=== PATIENT | female | born 1990 | race American Indian/Alaskan Native ===

== ENCOUNTER 2018-09-11 09:45 | Outpatient (CLI) | payer MEDICAID ==
[2018-09-11] MEDS ORDERED: LACTATED RINGERS 500 ML IV ONE (09:59)
--- NOTE | 2018-09-11 12:58 | Ultrasound Report ---
[facility] [address] [place] [address] Ultrasound Report Signed Patient: PERLA ESQUIVEL MR#: [id number] : 1990 Acct:[id number] Age/Sex: 27 / F ADM Date: 09/11/18 Loc: TRG TR1-[address]: TRENTON HER MD Ordering Physician: TRENTON HER MD Date of Service: 09/11/18 Procedure(s): US OB limited Accession Number(s): [id number] cc: TRENTON HER MD Limited OB ultrasound (placenta scan) INDICATION: Evaluate placental location FINDINGS: The placenta is located anteriorly and is grade 1. heart rate is 160 bpm. IMPRESSION: The placenta is located anteriorly. Signer Name: Scott Childress MD Signed: 09/11/2018 12:54 PM Workstation Name: [id number] Transcribed By: REF Dictated By: SHADI MAHMOOD MD Electronically Authenticated By: SHADI MAHMOOD MD Signed Date/Time: 09/11/18 1154 DD/ 1152 TD/TT:
[2018-09-11 13:00] LABS: Bilirubin,Urine NEG (Negative); Blood,Urine NEG (Negative); Color,Urine Yellow (Yellow); Protein,Urine <15 mg/dL mg/dL (Negative); WBC,Urine < 1.0 /HPF (0.0-6.0)
[2018-09-11] MEDS ORDERED: LACTATED RINGERS 1,000 ML ONE (16:35)
[2018-09-11] MEDS ORDERED: PROCARDIA*For Tocolysis only PO SCH (16:44)
[2018-09-11 17:06] VITALS: BP 135/82
[2018-09-11] MEDS ORDERED: LACTATED RINGERS 1,000 ML IV ONE (17:11)
[2018-09-11] MEDS ORDERED: CELESTONE SOLUSPAN IM ONE (18:56)
== END 2018-09-11 20:37 | disposition home or self-care (01) ==
LOC: TRG 09:45
PROVIDERS: ATTEND Obstetrics & Gynecology
DX: O46.93 Antepartum hemorrhage, unspecified, third trimester (principal); O47.03 False labor before 37 completed weeks of gestation, third trimester; O09.213 Supervision of pregnancy with history of pre-term labor, third trimester; O99.323 Drug use complicating pregnancy, third trimester; F12.90 Cannabis use, unspecified, uncomplicated; Z3A.28 28 weeks gestation of pregnancy
CPT/HCPCS: 59025; 76815; 81001; 96360; 96372; J0702; J7120; 96361

== ENCOUNTER 2018-11-04 22:28 | Inpatient (IN) | payer MEDICAID ==
[2018-11-04] MEDS ORDERED: LACTATED RINGERS 500 ML IV ONE (23:05)
[2018-11-04] MEDS ORDERED: BRETHINE SUB-Q SCH (23:45)
[2018-11-05 01:34] LABS: Bilirubin,Urine NEG (Negative); Blood,Urine NEG (Negative); Color,Urine Straw (Yellow); Protein,Urine <15 mg/dL mg/dL (Negative); Urobilinogen,Urine < 2.0 mg/dL (<2.0)
--- NOTE | 2018-11-05 03:41 | Ultrasound Report ---
OB ultrasound. 11/05/2018. HISTORY: Evaluate MELITON. labor. FINDINGS: A single viable intrauterine in the cephalic position has heart tones are 1 61 bpm. Amniotic fluid index is diminished at 5. The largest pocket is 2.7 cm. Biophysical profile is 6. 2 points were received for breathing movement, movement and fet al posture/stone. Signer Name: Antonio Gabriel MD Signed: 11/05/2018 3:37 AM Workstation Name: [id number]
[2018-11-05] MEDS ORDERED: TYLENOL PO PRN (04:28)
[2018-11-05] MEDS ORDERED: PROCTOSOL-HC PR PRN (04:53)
--- NOTE | 2018-11-05 05:08 | History and Physical Report ---
History of Present Illness Date of examination: 11/05/18 Date of admission: 11/05/18 03:49 Chief complaint: Oligohydramnios History of present illness: 28 year old female presents to rule out labor. Patient reports active movement. She denies leaking of fluid or vaginal bleeding. Patient had US here in triage that showed MELITON of 5.0 (and BPP 6/8). Patient received care at [facility]. Was able to look up records from [facility]. Patient states she received steroids for FLM during a previous visit. Unable to locate this on the computer. LMP 02/27/18. EDC 12/04/18. significant for the following: elevated 1 hour sugar test (normal 3 hr. OGTT), history of with a previous , labile BPs (pt. taking Labetalol 100 mg po BID), anemia (treated with iron). labs are as follows: B+, antibody screen negative, rubella immune, hepatitis B surface antigen negatve, HIV negative, RPR nonreactive, gonorrhea negative, chlamydia negative, quad screen negative, 1 hr. sugar test 153 (3 hr. OGTT negative). Past History Past Medical History: no pertinent history Past Surgical History: no surgical history [facility] History: denies: chlamydia, gonorrhea, hepatitis B, hepatitis C, herpes, HIV, syphilis, trichomonas Family/Genetic History: none Social history: single, smoking, full code. denies: alcohol abuse, prescription drug abuse, IV drug use - Obstetrical History Expected Date of Delivery: 12/04/18 Actual Gestation: 35 Week(s) 6 Day(s) : 6 Para: 3 Hx # Term Pregnancies: 3 Number of Pregnancies: 1 Spontaneous Abortions: 0 Induced : 1 Number of Living Children: 3 Medications and Allergies Allergies Allergy/AdvReac Type Severity Reaction Status Date / Time latex Allergy Rash Verified 09/11/18 09:58 Home Medications Medication Instructions Recorded Confirmed Last Taken Type Labetalol 100mg TAB 100 mg PO BID 11/02/18 11/02/18 11/02/18 History 100mg Active Meds: Active Medications Acetaminophen (Tylenol) 650 mg PO Q4H PRN PRN Reason: Pain MILD(1-3)/Fever >100.5/NAGEL Hydrocortisone Acetate (Proctosol-Hc) 1 applic CA Q8H PRN PRN Reason: Hemorrhoids Lactated Ringer's (Lactated Ringers) 1,000 mls @ 125 mls/hr IV DIRECT [place] Multivitamins/Iron/Calcium ( Vitamin) 1 each PO QDAY [facility] Terbutaline Sulfate (Brethine) 0.25 mg SUB-Q Q20MIN [place] Stop: 11/06/18 23:46 Last Admin: 11/05/18 00:36 Dose: 0.25 mg Documented by: Review of Systems All systems: negative - Vital Signs Vital signs: Vital Signs Pulse BP 93 H 122/80 11/04/18 22:48 11/04/18 22:48 Temp Pulse Resp BP Pulse Ox 98.1 F 79 18 128/83 98 11/04/18 22:57 11/05/18 00:44 11/04/18 22:57 11/05/18 00:37 11/05/18 00:44 - Physical Exam Abdomen: Positive: normal appearance, soft, normal bowel sounds. Negative: distention, tenderness, guarding, rigidity Genitourinary (Female): Positive: normal external genitalia, normal perenium. Negative: perineal/vulvar lesions Vagina: Positive: normal moisture Uterus: Positive: enlarged (s=d) Anus/Rectum: Positive: normal perianal skin Extremities: Positive: normal. Negative: tenderness, edema - Obstetrical FHR: category 1 Uterine Contraction Monitor Mode: External Cervical Dilatation: 2.5 Cervical Effacement Percentage: 50 station: -3 Uterine Contraction Pattern: Irregular Uterine Contraction Intensity: Mild Results Result Diagrams: 11/04/18 23:15 All other labs normal. Assessment and Plan A: at 35 6/7 weeks gestation. Oligohydramnios. P: Admit for 23 hour observation. IV hydration. Continuous EFM. Recheck MELITON by US later today. Manpreet IM.
[2018-11-05 06:02] LABS: Basophils # (Auto) 0.1 K/mm3 (0.0-0.1); Basophils % (Auto) 0.7 % (0.0-1.8); Eosinophils # (Auto) 0.1 K/mm3 (0.0-0.4); Hematocrit 28.1 % (30.3-42.9); Hemoglobin 8.7 gm/dl (10.1-14.3); Lymphocytes # (Auto) 2.3 K/mm3 (1.2-5.4); Lymphocytes % (Auto) 23.7 % (13.4-35.0); Mean Corpuscular HGB Conc 31 % (30-34); Monocytes # (Auto) 0.6 K/mm3 (0.0-0.8); Monocytes % (Auto) 6.6 % (0.0-7.3); Platelet Count 177 K/mm3 (140-440); Red Blood Count 4.27 M/mm3 (3.65-5.03); Red Cell Distribution Width 19.2 % (13.2-15.2)
[2018-11-05 06:03] LABS: Mean Corpuscular Volume 66 fl (79-97)
[2018-11-05] MEDS: LACTATED RINGERS 1,000 ML IV SCH ×3 (06:09→23:35)
[2018-11-05] MEDS ORDERED: TUCKS PAD TP ONE (06:31)
[2018-11-05] MEDS ORDERED: TUCKS PAD TP PRN (07:14)
[2018-11-05] MEDS ORDERED: SUBLIMAZE IV ONE (07:35)
[2018-11-05] MEDS ORDERED: SUBLIMAZE ONE (07:55)
[2018-11-05] MEDS ORDERED: CELESTONE SOLUSPAN IM SCH (10:00)
[2018-11-05] MEDS: FEOSOL PO SCH ×2 (11:50→22:11)
[2018-11-05] MEDS: PRENATAL VITAMIN PO SCH (11:50)
[2018-11-05] MEDS: NORMODYNE PO SCH ×2 (15:42→22:12)
--- NOTE | 2018-11-05 17:03 | Event Note ---
Date: 11/05/18 Patient reports intermittent mild contractions at this time. No regular contractions at this time. Patient denies LOF or VB. Pt. reports active movement. BPs elevated; patient states she was taking Labetalol 100 mg po BID at home; Labetalol 100 mg po BID ordered for pt. Pre-eclamptic labs ordered. Pt. denies headache, visual disturbance, swelling, epigastric pain, or N/V. BPP 8/8. MELITON 11.[address] Jaramillo re: this patient and he states to keep patient in hospital again tonight. Discussed this plan with patient and her S.O. who was at bedside. Full admit order put in.
--- NOTE | 2018-11-05 17:14 | Ultrasound Report ---
CLINICAL DATA: well being TECHNICAL DATA: Document breath, motion, gestational age, tone, and fluid. FINDINGS: respiration, tone, and motion are well visualized and normal. Amniotic fluid volume is normal. Biophysical profile score is 8/8. On the prior ultrasound of 11/05/2018 at 0312 hours, the patient received a score of 6 out of 8. heart rate is 146 bpm. Amniotic fluid index was calculated to be 11.5 cm. IMPRESSION: The biophysical profile score is 8/8. Signer Name: Jerica Silverman MD Signed: 11/05/2018 5:10 PM Workstation Name: [id number]
--- NOTE | 2018-11-05 17:16 | Ultrasound Report ---
Examination: Ultrasound Obstetrical Limited, 11/05/2018 at 1601 hours INDICATION: Evaluate amniotic fluid index. COMPARISON: Prior OB ultrasound from earlier today FINDINGS: There is a single living intrauterine with the head in the cephalic position. Amniotic flui d index measures 11.5 cm, which is within normal limits. The heart rate is 146 beats per minute . IMPRESSION: Single viable IUP in a cephalic presentation. Normal amniotic fluid volume. Signer Name: Jerica Silverman MD Signed: 11/05/2018 5:12 PM Workstation Name: [id number]
[2018-11-05 18:10] LABS: Alanine Aminotransferase 7 units/L (7-56); Albumin 3.2 g/dL (3.9-5); BUN/Creatinine Ratio 8; Blood Urea Nitrogen 3 mg/dL (7-17); Hemolysis Index 1; Uric Acid 3.8 mg/dL (3.5-7.6)
[2018-11-05] MEDS ORDERED: ZOFRAN ONE (22:06)
[2018-11-06] MEDS ORDERED: SUBLIMAZE IV ONE (00:51)
[2018-11-06] MEDS: LACTATED RINGERS 1,000 ML IV SCH ×2 (02:50→11:31)
[2018-11-06] MEDS: PRENATAL VITAMIN PO SCH (10:06)
[2018-11-06] MEDS: NORMODYNE PO SCH ×2 (10:06→21:14)
[2018-11-06] MEDS: FEOSOL PO SCH ×2 (10:07→21:14)
--- NOTE | 2018-11-06 10:11 | Progress Note ---
Assessment and Plan - Patient Problems (1) 36 weeks gestation of Current Visit: Yes Status: Acute (2) labor in third trimester Current Visit: Yes Status: Acute Plan to address problem: Continue current management Will consult Dr. Harris about plan of care (3) Gestational hypertension Current Visit: Yes Status: Acute Qualifiers: Trimester: third trimester Qualified Code(s): O13.3 - Gestational [-induced] hypertension without significant proteinuria, third trimester Plan to address problem: PIH labs WNL Continue Labetalol 100mg PO BID (4) Anemia affecting in third trimester Current Visit: Yes Status: Acute Plan to address problem: Asymptomatic Continue iron therapy Subjective - Subjective Date of service: 11/06/18 Principal diagnosis: IUP @ 36 weeks, Labor Interval history: see H&P and Event Note Patient reports: movement normal, contractions, other (denies headache, visual disturbances or RUQ pain), no loss of fluid, no vaginal bleeding Objective - Vital Signs Vital Signs: Vital Signs - 12hr 11/05/18 11/05/18 11/06/18 22:12 22:13 02:50 Temperature Pulse Rate 118 H 118 H Respiratory 16 Rate Blood Pressure 134/94 136/94 Blood Pressure [Right] 11/06/18 11/06/18 11/06/18 08:17 10:00 10:03 Temperature 98.7 F Pulse Rate 98 H 111 H 100 H Respiratory 16 Rate Blood Pressure 127/81 143/92 140/90 Blood Pressure 127/81 [Right] 11/06/18 10:06 Temperature Pulse Rate 100 H Respiratory Rate Blood Pressure 140/90 Blood Pressure [Right] - Exam FHR: auscultation normal, category 1 FHR comments: baseline 140, moderate variability, 15x15 accels, no decels Uterine Contraction Monitor Mode: External Cervical Dilatation: 2.5 Cervical Effacement Percentage: 50 station: -3 Uterine Contraction Frequency (min): 2-4 Uterine Contraction Pattern: Regular Extremities: normal - Labs Labs: Abnormal Labs 11/04/18 11/05/18 23:15 17:20 Hgb 8.7 L Hct 28.1 L MCV 66 L MCH 20 L RDW 19.2 H Carbon Dioxide 21 L BUN 3 L Creatinine 0.4 L Glucose 143 H Alkaline Phosphatase 133 H Albumin 3.2 L Laboratory Results - last 24 hr 11/05/18 17:20 Sodium 140 Potassium 3.6 Chloride 103.1 Carbon Dioxide 21 L Anion Gap 20 BUN 3 L Creatinine 0.4 L Estimated GFR > 60 BUN/Creatinine Ratio 8 Glucose 143 H Uric Acid 3.8 Calcium 9.0 Total Bilirubin 0.70 AST 15 ALT 7 Alkaline Phosphatase 133 H Lactate Dehydrogenase 167 Total Protein 7.0 Albumin 3.2 L Albumin/Globulin Ratio 0.8
--- NOTE | 2018-11-06 14:11 | Event Note ---
Date: 11/06/18 S: Patient resting in bed and on her cellphone. C/O regular painful contractions. Denies vaginal bleeding or loss of fluid. Significant other at b edside. O: FHR baseline 145, moderate variability, 15x15 accels, occasional mild variable decels Ctxs: irregular. Abdomen soft on palpation SVE 2.5/50/-3/I BPs stable A: IUP @ 36 weeks Cat II FHR Labor - no cervical change since 11/05/18 Gestational HTN P: Continue current management Repeat BPP and MELITON; if normal and 1 hour of reactive NST will d/c pt home to f/u at the office in 48 hours Patient agreed with plan of care
--- NOTE | 2018-11-06 16:24 | Ultrasound Report ---
LIMITED OB ULTRASOUND INDICATION: Patient is 36 weeks . Nonreassuring heart rate FINDINGS: heart rate is 168 bpm. Amniotic fluid index is 7.8 cm which is at the lower end of the normal r pedro. The fetus is currently cephalic presentation. IMPRESSION: Amniotic fluid index is 7.8 cm. heart rate is 168 bpm. BIOPHYSICAL PROFILE INDICATION: 36 weeks , nonreassuring heart rate FINDINGS: Biophysical profile score is 8 out of 8. Scores 2 for breathing movement, 2 for movement, 2 for posture and tone and 2 for q ualitative amniotic volume. IMPRESSION: Biophysical profile score is 8 out of 8. Signer Name: Scott Childress MD Signed: 11/06/2018 4:20 PM Workstation Name: [id number]
[2018-11-06] MEDS ORDERED: ZOFRAN ONE (21:37)
[2018-11-07] MEDS ORDERED: STADOL IV ONE (00:39)
[2018-11-07] MEDS ORDERED: ZOFRAN IV ONE (03:00)
[2018-11-07] MEDS ORDERED: STADOL IV PRN (05:29)
[2018-11-07] MEDS: LACTATED RINGERS 1,000 ML IV SCH (05:46)
[2018-11-07] MEDS: NORMODYNE PO SCH (10:53)
[2018-11-07] MEDS: PRENATAL VITAMIN PO SCH (10:53)
[2018-11-07] MEDS: FEOSOL PO SCH (10:53)
[2018-11-07 11:43] VITALS: BP 115/69
--- NOTE | 2018-11-07 12:07 | Event Note ---
Date: 11/07/18 MELITON repeated with results of 9.1. Informed pt of normal MELITON results and that IOL is not indicated. Instructed that she will be d/c home and to keep next scheduled appt with office. Reviewed pre-tern labor precautions and when to notify provider, verbalized understanding.
--- NOTE | 2018-11-07 12:12 | Discharge Summary ---
Providers - Providers Date of Admission: 11/05/18 03:49 Date of discharge: 11/07/18 Attending physician: IVONE GARCIA MD Primary care physician: IVONE GARCIA MD Hospitalization Reason for admission: other (R/O labor and oligohydramnios) Discharge diagnosis: other (36 week gestation; anemia) Pertinent studies: MELITON - 9.1, BPP 10/19 Hospital course: See admission H & P, BPP and MELITON results Condition at discharge: Good Disposition: DC-01 TO HOME OR SELFCARE - Discharge Diagnoses (1) 36 weeks gestation of Status: Acute (2) Anemia affecting in third trimester Status: Acute Plan - Provider Discharge Summary Activity: routine Diet: routine Additional instructions: [] Smoking cessation referral if applicable(refer to patient education folder for contact #) [] Refer to [facility] Booklet - Follow up plan Follow up: IVONE GARCIA MD [Primary Care Provider] - 7 Days
[2018-11-07] MEDS ORDERED: BRETHINE SUB-Q ONE (13:02)
--- NOTE | 2018-11-07 13:25 | Ultrasound Report ---
Examination: Ultrasound Obstetrical Limited, 11/07/2018 INDICATION: Evaluate well being. COMPARISON: 11/06/2018 FINDINGS: There is a single living intrauterine with the head in the cephalic position. Amniotic flui d index measures 9.1 cm, which is within normal limits. The heart rate is 148 beats per minute. IMPRESSION: Viable IUP in a cephalic presentation. Signer Name: Jerica Silverman MD Signed: 11/07/2018 1:21 PM Workstation Name: [id number]
== END 2018-11-07 12:50 | disposition home or self-care (01) | DRG 781 ==
LOC: TRG 22:28 → OBSVTOIN 11-05 03:49 → LD 11-05 03:49
PROVIDERS: ADMIT Obstetrics & Gynecology; ATTEND Obstetrics & Gynecology
DX: O41.03X0 Oligohydramnios, third trimester, not applicable or unspecified (principal); O99.013 Anemia complicating pregnancy, third trimester; O13.3 Gestational [pregnancy-induced] hypertension without significant proteinuria, third trimester; D64.9 Anemia, unspecified; Z3A.35 35 weeks gestation of pregnancy; Z91.040 Latex allergy status; Z79.899 Other long term (current) drug therapy
CPT/HCPCS: 36415; 76815; 76819; 80053; 81001; 83615; 84550; 85025; G0378; J0595; J0702; J2405; J3010; J3105; J7120

== ENCOUNTER 2018-11-09 12:09 | Inpatient (IN) | payer MEDICAID ==
[2018-11-09 14:33] LABS: Hematocrit 27.4 % (30.3-42.9); Hemoglobin 8.4 gm/dl (10.1-14.3); Mean Corpuscular HGB Conc 31 % (30-34); Red Blood Count 4.18 M/mm3 (3.65-5.03); Red Cell Distribution Width 19.5 % (13.2-15.2)
[2018-11-09] MEDS ORDERED: BRETHINE IVP PRN (15:08)
[2018-11-09] MEDS ORDERED: AMPICILLIN/NS 2 GM/100 ML 2 GM/100 ML BAG IV ONE (15:08)
[2018-11-09] MEDS ORDERED: ZOFRAN IV PRN (15:08)
[2018-11-09] MEDS ORDERED: BRETHINE SUB-Q PRN (15:08)
[2018-11-09] MEDS ORDERED: MINERAL OIL PO PRN (15:08)
[2018-11-09] MEDS ORDERED: SUBLIMAZE IV PRN (15:08)
[2018-11-09] MEDS ORDERED: XYLOCAINE 2% INFILTRATI ONE (15:08)
[2018-11-09 15:18] LABS: Mean Corpuscular Volume 65 fl (79-97)
[2018-11-09 15:19] LABS: Platelet Count 146 K/mm3 (140-440)
[2018-11-09] MEDS: LACTATED RINGERS 1,000 ML IV SCH (15:52)
[2018-11-09] MEDS ORDERED: PITOCin/NS 20 UNIT/1000ML DRIP 20 UNITS/1,000 ML BAG IV SCH (16:00)
[2018-11-09] MEDS ORDERED: PITOCin/NS 30 UNIT/500ML 30 UNITS/500 ML BAG IV SCH (16:00)
--- NOTE | 2018-11-09 16:03 | History and Physical Report ---
History of Present Illness Date of examination: 11/09/18 Date of admission: 11/09/18 12:09 Chief complaint: Sent from [facility] for direct admission History of present illness: 28 yo Fe NINA 12/04/2018 (LMP), 36weeks 3days, presents for direct s/p [facility] this morning. Oligohydramnios with MELITON 1.41. BPP 08/21. [facility] report available and reviewed. Pt initiated early care with [facility] at 6w3d. Pt co-managed with [facility] d/t CHTN, Hx PTL, and decreased MELITON. records available and reviewed. course complicated by the following: Anemia: Ferrous sulfate 325mg PO BID Hx PTL/PTB: 36 wks in 2013 CHTN: Liable B/P during . Labetalol 100mg BID labor current : Procardia 10mg PO QID; s/p BMZ x2 (09/11-09/12) labs: B positive, Rubella Immune, VDRL non-reactive, HBsAg Negative, HIV Negative, GC negative, CHL Negative, Trichomoniasis Negative, GBS unknown Past History Past Medical History: no pertinent history Past Surgical History: no surgical history [employer] History: denies: abnormal PAP smear, chlamydia, gonorrhea, hepatitis B, hepatitis C, herpes, HIV, syphilis, trichomonas Family/Genetic History: none (Denies) Social history: no significant social history, single, lives with family, full code. denies: smoking, alcohol abuse, prescription drug abuse, IV drug use - Obstetrical History Expected Date of Delivery: 12/04/18 Actual Gestation: 36 Week(s) 3 Day(s) : 5 Para: 3 Hx # Term Pregnancies: 2 Number of Pregnancies: 1 Spontaneous Abortions: 0 Induced : 1 Number of Living Children: 3 #1 Gender: Female year: Method of Delivery: Vaginal Gestational age at delivery: 38 Complications: none #2 Infant Gender: Female year: Method of Delivery: Vaginal Gestational age at delivery: 37 Complications: none #3 Infant Gender: Female year: Method of Delivery: Vaginal Gestational age at delivery: 36 ( Labor and delivery) Complications: none Medications and Allergies Allergies Allergy/AdvReac Type Severity Reaction Status Date / Time latex Allergy Rash Verified 09/11/18 09:58 Home Medications Medication Instructions Recorded Confirmed Last Taken Type Labetalol 100mg TAB 100 mg PO BID 11/02/18 11/09/18 11/09/18 07:00 History Vit-Fe Fumar-FA [ 1 tab PO DAILY 11/06/18 11/09/18 11/09/18 07:00 History Vitamin] Active Meds: Active Medications Ephedrine Sulfate (Ephedrine Sulfate) 10 mg IV Q2M PRN PRN Reason: Hypotension Fentanyl (Sublimaze) 100 mcg IV Q2H PRN PRN Reason: Labor Pain Oxytocin/Sodium Chloride (Pitocin/Ns 20 Unit/1000ml Drip) 20 units in 1,000 mls @ 125 mls/hr IV DIRECT [place] Oxytocin/Sodium Chloride (Pitocin/Ns 30 Unit/500ml) 30 units in 500 mls @ 1 mls/hr IV TITR [place]; Protocol Oxytocin/Sodium Chloride (Pitocin/Ns 30 Unit/500ml) 30 units in 500 mls @ 2 mls/hr IV TITR [place]; Protocol Lactated Ringer's (Lactated Ringers) 1,000 mls @ 125 mls/hr IV DIRECT [place] Ampicillin Sodium (Ampicillin/Ns 2 Gm/100 Ml) 2 gm in 100 mls @ 100 mls/hr IV ONCE ONE; Protocol Stop: 11/09/18 16:07 Mineral Oil (Mineral Oil) 30 ml PO QHS PRN PRN Reason: Constipation Ondansetron HCl (Zofran) 4 mg IV Q8H PRN PRN Reason: Nausea And Vomiting Terbutaline Sulfate (Brethine) 0.25 mg SUB-Q ONCE PRN PRN Reason: Hyperstimulation/Hypertonicity Terbutaline Sulfate (Brethine) 0.25 mg IVP ONCE PRN PRN Reason: Hyperstimulation/Hypertonicity Review of Systems Eyes: normal appearance Cardiovascular: no chest pain, no shortness of breath Respiratory: no shortness of breath Breasts: normal Gastrointestinal: no abdominal pain, no nausea, no vomiting, no diarrhea, no constipation Genitourinary: leakage of fluid (Reports she started leaking on Tuesday11/04/2018), no vaginal bleeding, no pelvic pain, no genital sores, no contractions - Vital Signs Vital signs: Vital Signs Pulse BP 101 H 138/79 11/09/18 12:44 11/09/18 12:44 Temp Pulse Resp BP Pulse Ox 94 H 134/82 11/09/18 14:36 11/09/18 14:36 - Physical Exam Breasts: Positive: normal Cardiovascular: Regular rate, Normal S1, Normal S2, No murmurs Lungs: Positive: Clear to auscultation, Normal air movement Abdomen: Positive: normal appearance, soft, normal bowel sounds. Negative: distention, tenderness Genitourinary (Female): Positive: normal external genitalia, normal perenium Uterus: Positive: enlarged (Gravid; S=D) Anus/Rectum: Positive: normal perianal skin Extremities: Positive: normal Deep Tendon Reflex Grade: Normal +2 - Obstetrical FHR: category 1 Uterine Contraction Monitor Mode: External Cervical Dilatation: 3 (Per Admitting RN; Edita) Cervical Effacement Percentage: 50 station: -2 Uterine Contraction Pattern: Irregular Uterine Tone Measurement Phase: Resting Uterine Contraction Intensity: Mild Results Result Diagrams: 11/09/18 13:40 Abnormal lab results 11/09/18 Range/Units 13:40 WBC 11.4 H (4.5-11.0) K/mm3 Hgb 8.4 L (10.1-14.3) gm/dl Hct 27.4 L (30.3-42.9) % MCV 65 L (79-97) fl MCH 20 L (28-32) pg RDW 19.5 H (13.2-15.2) % All other labs normal. Assessment and Plan A: IUP at 36w3d Oligohydramnios; MELITON 1.41 cm CHTN; Labetalol 100mg BID Category 1 tracing GBS unknown Iron deficient Anemia; Admission H/H 8.4/27.4 Probable prolonged LOF; pt reports LOF since 11/04, WBC 11.4 P: Admit to L&D; Routine labor orders Pitocin IOL GBS prophylaxis Continue labetalol 100mg BID
[2018-11-09] MEDS: PITOCin/NS 30 UNIT/500ML 30 UNITS/500 ML BAG IV SCH ×2 (17:54→18:27)
[2018-11-09] MEDS ORDERED: AMPICILLIN/NS 1 GM/50 ML 1 GM/50 ML BAG IV SCH ×2 (20:00→22:00)
[2018-11-09] MEDS ORDERED: NORMODYNE PO SCH (20:00)
[2018-11-10] MEDS: LACTATED RINGERS 1,000 ML IV SCH (01:37)
[2018-11-10] MEDS ORDERED: NARCAN 2 MG/2 ML IV PRN (02:44)
--- NOTE | 2018-11-10 02:44 | Anesthesia Consultation ---
Anesthesia Consult and Med Hx Date of service: 11/10/18 - Airway Anesthetic Teeth Evaluation: Good ROM Head & Neck: Adequate Mental/Hyoid Distance: Adequate Mallampati Class: Class II Intubation Access Assessment: Probably Good - Pulmonary Exam CTA: Yes - Cardiac Exam Cardiac Exam: RRR - Pre-Operative Health Status ASA Pre-Surgery Classification: ASA2 Proposed Anesthetic Plan: Epidural - Pulmonary Hx Smoking: No Hx Asthma: No Hx Respiratory Symptoms: No SOB: No COPD: No Home Oxygen Therapy: No Hx Pneumonia: No Hx Sleep Apnea: No - Cardiovascular System Hx Hypertension: No Hx Coronary Artery Disease: No Hx Heart Attack/AMI: No Hx Angina: No Hx Percutaneous Transluminal Coronary Angioplasty (PTCA): No Hx Cardia Arrhythmia: No Hx Pacemaker: No Hx Internal Defibrillator: No Hx Valvular Heart Disease: No Hx Heart Murmur: No Hx Peripheral Vascular Disease: No - Central Nervous System Hx Neuromuscular Disorder: No Hx Seizures: No CVA: No Hx Back Pain: No Hx Psychiatric Problems: No - Gastrointestinal Hx Ulcer: No Hx Gastroesophageal Reflux Disease: No - Endocrine Hx Renal Disease: No Hx End Stage Renal Disease: No Hx Cirrhosis: No Hx Liver Disease: No Hx Insulin Dependent Diabetes: No Hx Non-Insulin Dependent Diabetes: No Hx Thyroid Disease: No Hx Hypothyroidism: No Hx Hyperthyroidism: No - Hematic Hx Anemia: No Hx Sickle Cell Disease: No - Other Systems Hx Alcohol Use: No Hx Substance Use: No Hx Cancer: No Hx Obesity: No
[2018-11-10] MEDS ORDERED: fentaNYL-BUPIV 2 MCG/ML-0.125% 200 MCG/100 ML BAG EPIDURAL SCH (03:00)
[2018-11-10] MEDS: AMPICILLIN/NS 1 GM/50 ML 1 GM/50 ML BAG IV SCH ×2 (04:00)
[2018-11-10] MEDS ORDERED: MARCAINE 0.25% INFILTRATI ONE (06:09)
--- NOTE | 2018-11-10 06:09 | Progress Note ---
Assessment and Plan A: IUP at 36w4d IOL d/t Oligohydramnios; MELITON 1.41 cm CHTN; Labetalol 100mg BID Category 1 tracing GBS unknown; Ampicillin x4 Pitocin 22mu Pain uncontrolled with epidural P: Continue routine labor orders Pitocin turned off after insertion of IUPC as contractions q 1-2 min, lasting 60-120sec CAll to anesthesia to redose epidural Continue GBS prophylaxis Continue labetalol 100mg BID Anticipate Subjective - Subjective Date of service: 11/10/18 Interval history: 28 yo Fe INNA 12/04/2018 (LMP), 36weeks 3days, presents for direct s/p APA this morning. Oligohydramnios with MELITON 1.41. BPP 08/21. APA report available and reviewed. Pt initiated early care with [facility] at 6w3d. Pt co-managed with APA d/t CHTN, Hx PTL, and decreased MELITON. records available and reviewed. course complicated by the following: Anemia: Ferrous sulfate 325mg PO BID Hx PTL/PTB: 36 wks in 2013 CHTN: Liable B/P during . Labetalol 100mg BID labor current : Procardia 10mg PO QID; s/p BMZ x2 (09/11-09/12) labs: B positive, Rubella Immune, VDRL non-reactive, HBsAg Negative, HIV Negative, GC negative, CHL Negative, Trichomoniasis Negative, GBS unknown Patient reports: contractions Objective - Vital Signs Vital Signs: Vital Signs - 12hr 11/09/18 11/09/18 11/09/18 18:03 19:27 19:59 Temperature 98.3 F 980.6 F H Pulse Rate 102 H Respiratory Rate Blood Pressure 121/88 O2 Sat by Pulse Oximetry 11/09/18 11/09/18 11/09/18 20:00 20:41 20:59 Temperature Pulse Rate 95 H 95 H 96 H Respiratory Rate Blood Pressure 144/91 144/91 133/89 O2 Sat by Pulse Oximetry 11/09/18 11/09/18 11/09/18 21:28 22:00 22:29 Temperature Pulse Rate 101 H 90 91 H Respiratory Rate Blood Pressure 140/101 132/82 O2 Sat by Pulse 99 Oximetry 11/09/18 11/09/18 11/09/18 22:30 22:34 22:39 Temperature Pulse Rate 83 101 H 98 H Respiratory Rate Blood Pressure 133/79 O2 Sat by Pulse 97 97 Oximetry 11/09/18 11/09/18 11/09/18 22:44 22:49 22:54 Temperature Pulse Rate 103 H 94 H 97 H Respiratory Rate Blood Pressure O2 Sat by Pulse 96 96 97 Oximetry 11/09/18 11/09/18 11/09/18 22:59 23:04 23:09 Temperature Pulse Rate 95 H 85 106 H Respiratory Rate Blood Pressure 114/78 O2 Sat by Pulse 98 99 95 Oximetry 11/09/18 11/09/18 11/09/18 23:14 23:19 23:24 Temperature Pulse Rate 88 92 H 94 H Respiratory Rate Blood Pressure O2 Sat by Pulse 98 97 97 Oximetry 11/09/18 11/10/18 11/10/18 23:29 00:00 00:28 Temperature Pulse Rate 89 82 61 Respiratory Rate Blood Pressure 121/66 131/88 O2 Sat by Pulse 96 91 Oximetry 11/10/18 11/10/18 11/10/18 00:29 00:33 00:38 Temperature Pulse Rate 93 H 84 89 Respiratory Rate Blood Pressure 130/83 O2 Sat by Pulse 94 93 Oximetry 11/10/18 11/10/18 11/10/18 00:43 00:48 00:53 Temperature Pulse Rate 86 81 88 Respiratory Rate Blood Pressure O2 Sat by Pulse 96 95 94 Oximetry 11/10/18 11/10/18 11/10/18 00:58 00:59 01:03 Temperature Pulse Rate 79 86 83 Respiratory Rate Blood Pressure 130/86 O2 Sat by Pulse 94 94 94 Oximetry 11/10/18 11/10/18 11/10/18 01:05 01:07 01:08 Temperature Pulse Rate 81 81 Respiratory 18 Rate Blood Pressure O2 Sat by Pulse 94 94 Oximetry 11/10/18 11/10/18 11/10/18 01:13 01:14 01:18 Temperature Pulse Rate 89 84 82 Respiratory Rate Blood Pressure O2 Sat by Pulse 94 93 96 Oximetry 11/10/18 11/10/18 11/10/18 01:23 01:28 01:30 Temperature Pulse Rate 83 94 H 96 H Respiratory Rate Blood Pressure 152/92 O2 Sat by Pulse 96 97 Oximetry 11/10/18 11/10/18 11/10/18 01:34 01:43 01:59 Temperature Pulse Rate 70 72 101 H Respiratory Rate Blood Pressure 157/92 O2 Sat by Pulse 95 94 Oximetry 11/10/18 11/10/18 11/10/18 02:08 02:11 02:13 Temperature Pulse Rate 88 80 90 Respiratory Rate Blood Pressure 139/67 O2 Sat by Pulse 99 94 98 Oximetry 11/10/18 11/10/18 11/10/18 02:18 02:23 02:28 Temperature Pulse Rate 98 H 85 91 H Respiratory Rate Blood Pressure O2 Sat by Pulse 98 97 98 Oximetry 11/10/18 11/10/18 11/10/18 02:29 02:33 02:38 Temperature Pulse Rate 76 90 89 Respiratory Rate Blood Pressure 123/74 O2 Sat by Pulse 98 98 Oximetry 11/10/18 11/10/18 11/10/18 02:43 02:48 02:53 Temperature Pulse Rate 88 82 79 Respiratory Rate Blood Pressure O2 Sat by Pulse 98 98 98 Oximetry 11/10/18 11/10/18 11/10/18 02:58 02:59 03:03 Temperature Pulse Rate 86 83 79 Respiratory Rate Blood Pressure 127/83 O2 Sat by Pulse 98 97 Oximetry 11/10/18 11/10/18 11/10/18 03:08 03:13 03:18 Temperature Pulse Rate 82 86 89 Respiratory Rate Blood Pressure O2 Sat by Pulse 99 98 98 Oximetry 11/10/18 11/10/18 11/10/18 03:23 03:28 03:30 Temperature Pulse Rate 96 H 94 H 78 Respiratory Rate Blood Pressure 126/85 O2 Sat by Pulse 97 98 Oximetry 11/10/18 11/10/18 11/10/18 03:33 03:35 03:38 Temperature Pulse Rate 72 100 H 84 Respiratory Rate Blood Pressure O2 Sat by Pulse 100 77 L 98 Oximetry 11/10/18 11/10/18 11/10/18 03:43 03:59 04:29 Temperature Pulse Rate 83 82 86 Respiratory Rate Blood Pressure 119/64 122/84 O2 Sat by Pulse 96 Oximetry 11/10/18 11/10/18 04:59 05:29 Temperature Pulse Rate 84 74 Respiratory Rate Blood Pressure 126/86 132/82 O2 Sat by Pulse Oximetry - Exam Breasts: normal Cardiovascular: Regular rate, Normal S1, Normal S2, No murmurs Lungs: Clear to auscultation, Normal air movement Abdomen: Present: normal appearance, soft, normal bowel sounds Vulva: both: normal (small amt clear fluid noted) Uterus: Present: other (gravid) FHR: category 1 Uterine Contraction Monitor Mode: External Cervical Dilatation: 4 (AROM of Forebag; small amt clear fluid. IUPC placed in gentle fashion with no resistance. Blood noted in catheter. Catheter flushed. ) Cervical Effacement Percentage: 80 station: -1 Uterine Contraction Pattern: Regular Uterine Tone Measurement Phase: Resting Uterine Contraction Intensity: Moderate Extremities: normal Deep Tendon Reflex Grade: Normal +2 - Labs Labs: Abnormal Labs 11/09/18 13:40 WBC 11.4 H Hgb 8.4 L Hct 27.4 L MCV 65 L MCH 20 L RDW 19.5 H Laboratory Results - last 24 hr 11/09/18 11/09/18 13:40 15:42 WBC 11.4 H RBC 4.18 Hgb 8.4 L Hct 27.4 L MCV 65 L MCH 20 L MCHC 31 RDW 19.5 H Plt Count 146 Blood Type B POSITIVE Antibody Screen Negative
--- NOTE | 2018-11-10 07:56 | Procedure Note ---
OB Delivery Note - Delivery Date of Delivery: 11/10/18 (07:23) Surgeon: BUCKY MENDEZ (HÉCTOR) Estimated blood loss: 100cc - Vaginal Delivery presentation: vertex Delivery position: OA Intrapartum events: none Delivery induction: oxytocin Delivery monitor: external FHT, external uterine Route of delivery: (07:23) Delivery placenta: spontaneous (07:27) Delivery cord: 3 umbilical vessels Delivery laceration: none Anesthesia: epidural Delivery comments: viable male infant LICO position over intact perienum at 07:23. Vigorous placed [id number] on mothers abdomen. Delayed cord clamping, then cut by FOB with my guidance. Spontaneous lyle delivery intact placenta at 07:27. 3VC. FF@U-2. No tears or lacerations. Infant and mother left in stable condition in L&D. ebl 100cc. - A at 1 minute: 8 at 5 minutes: 9 Infant Gender: Male (6lbs 3oz, 2810 grams, 18")
[2018-11-10] MEDS ORDERED: BENADRYL PO PRN (08:30)
[2018-11-10] MEDS ORDERED: LANSINOH TP PRN (09:00)
[2018-11-10] MEDS ORDERED: TYLENOL PO PRN (09:00)
[2018-11-10] MEDS ORDERED: ZOFRAN IV PRN (09:00)
[2018-11-10] MEDS ORDERED: SODIUM CHLORIDE FLUSH SYRINGE 10 ML IV PRN (09:00)
[2018-11-10] MEDS ORDERED: MILK OF MAGNESIA PO PRN (09:00)
[2018-11-10] MEDS ORDERED: DULCOLAX PR PRN (10:00)
[2018-11-10] MEDS ORDERED: ANUCORT-HC PR PRN (10:00)
[2018-11-10] MEDS: TUCKS PAD TP PRN (11:33)
[2018-11-10] MEDS: IBUPROFEN PO SCH ×3 (11:34→21:26)
[2018-11-10] MEDS: DERMOPLAST TP PRN (11:34)
[2018-11-10 19:57] LABS: Hematocrit 25.8 % (30.3-42.9)
[2018-11-10] MEDS: NORCO 5/325 PO PRN (21:36)
[2018-11-11] MEDS: NORCO 5/325 PO PRN ×3 (04:02→21:28)
[2018-11-11] MEDS: IBUPROFEN PO SCH ×4 (05:52→21:19)
[2018-11-11] MEDS: DERMOPLAST TP PRN (09:55)
[2018-11-11] MEDS: TUCKS PAD TP PRN (09:56)
--- NOTE | 2018-11-11 11:33 | Progress Note ---
Assessment and Plan A: day 1 S/P spontaneous vaginal delivery. Anemia secondary to and blood loss. P: Supplement with oral iron. Anticipate discharge tomorrow. Subjective - Subjective Date of service: 11/11/18 Principal diagnosis: day 1 S/P spontaneous vaginal delivery Interval history: day 1 S/P spontaneous vaginal delivery. Doing well. Voiding without difficulty, ambulating well, tolerating a regular diet without nausea or vomiting. Reports small amount of lochia. Patient denies headache, chest pain, shortness of breath, leg pain, or abdominal pain. Patient reports: appetite normal, voiding normally, pain well controlled, flatus, ambulating normally, no dizzy ambulation, no nauseated : doing well Objective - Vital Signs Latest vital signs: Vital Signs Temp Pulse Resp BP BP Pulse Ox 11/11/18 09:57 20 11/11/18 08:25 97.4 F L 74 18 136/90 11/11/18 05:52 18 11/11/18 05:02 18 11/11/18 04:02 18 11/11/18 00:00 98.4 F 73 18 101/61 11/10/18 22:36 18 11/10/18 21:36 18 11/10/18 21:26 18 11/10/18 19:30 98.4 F 71 16 134/70 11/10/18 18:26 18 11/10/18 16:26 97.6 F 87 16 133/83 100 11/10/18 12:22 97.7 F 97 H 16 134/87 98 Intake and Output 11/10/18 11/11/18 11/11/18 23:59 07:59 15:59 Intake Total 300 120 Balance 300 120 Intake: Oral 120 Intake, Free Water 300 Other: Total, Intake Amount 120 # Voids Void 1 - Exam Cardiovascular: Present: Regular rate, Normal S1, Normal S2 Lungs: Present: Clear to auscultation Abdomen: Present: normal appearance, soft. Absent: distention, tenderness, guarding, rigidity Uterus: Present: normal, firm, fundal height below umbilicus. Absent: bogginess, tenderness Extremities: Present: normal. Absent: tenderness, edema - Labs Labs: Abnormal lab results 11/10/18 Range/Units 19:33 Hgb 8.0 L (10.1-14.3) gm/dl Hct 25.8 L (30.3-42.9) %
[2018-11-11] MEDS: FEOSOL PO SCH ×2 (16:25→21:19)
[2018-11-11] MEDS ORDERED: PROCTOFOAM PR PRN (17:38)
[2018-11-11] MEDS: NORMODYNE PO SCH (18:11)
[2018-11-11 18:57] LABS: Hematocrit 27.3 % (30.3-42.9); Hemoglobin 8.5 gm/dl (10.1-14.3); Mean Corpuscular HGB Conc 31 % (30-34); Platelet Count 156 K/mm3 (140-440); Red Blood Count 4.14 M/mm3 (3.65-5.03)
[2018-11-11 19:10] LABS: Mean Corpuscular Volume 66 fl (79-97); Red Cell Distribution Width 20.3 % (13.2-15.2)
[2018-11-11 19:59] LABS: Alanine Aminotransferase 10 units/L (7-56); Albumin 2.9 g/dL (3.9-5); BUN/Creatinine Ratio 10; Blood Urea Nitrogen 5 mg/dL (7-17); Calcium 8.5 mg/dL (8.4-10.2); Hemolysis Index 3
[2018-11-11] MEDS: PHENERGAN PO PRN (23:31)
[2018-11-12 00:36] LABS: Bilirubin,Urine NEG (Negative); Blood,Urine LG (Negative); Color,Urine Yellow (Yellow); Mucus,Urine FEW /HPF; Protein,Urine <15 mg/dL mg/dL (Negative); Urobilinogen,Urine < 2.0 mg/dL (<2.0)
[2018-11-12 00:38] LABS: RBC,Urine > 182.0 /HPF (0.0-6.0)
[2018-11-12] MEDS: NORCO 5/325 PO PRN ×2 (02:48→10:22)
[2018-11-12] MEDS: IBUPROFEN PO SCH ×3 (03:45→20:33)
[2018-11-12] MEDS: NORMODYNE PO SCH ×2 (09:49→21:49)
[2018-11-12] MEDS: FEOSOL PO SCH ×2 (09:50→21:50)
[2018-11-12] MEDS ORDERED: XYLOCAINE 1% MPF 5 mL INFILTRATI ONE (15:01)
--- NOTE | 2018-11-12 15:51 | Progress Note ---
Assessment and Plan A: day 2 S/P vaginal delivery. UTI. Elevated blood pressures. Anemia secondary to and blood loss. P: Labetalol 200 mg po BID. Rocephin IM (patient's IV has been removed and she declines re-start). Iron supplementation. BP monitoring. Subjective - Subjective Date of service: 11/12/18 Principal diagnosis: day 2 S/P spontaneous vaginal delivery Interval history: day 2 S/P spontaneous vaginal delivery. Doing well. Voiding without difficulty, ambulating well, tolerating a regular diet without nausea or vomiting. Reports small amount of lochia. Patient denies headache, visual disturbance, chest pain, shortness of breath, dizziness, nausea or vomiting, fever or chills, malaise, leg pain, or abdominal pain. She denies flank pain but reports lower back pain. Urinalysis shows > 12 WBC/hpf. Patient reports: appetite normal, voiding normally, flatus, ambulating normally, no dizzy ambulation, no nauseated [place]: doing well Objective - Vital Signs Latest vital signs: Vital Signs Temp Pulse Resp BP BP Pulse Ox 11/12/18 14:11 20 11/12/18 12:15 98.7 F 79 18 159/99 11/12/18 10:22 20 11/12/18 08:13 98.3 F 87 18 145/93 11/12/18 04:00 98.6 F 67 18 127/75 11/12/18 03:48 18 11/12/18 02:48 18 11/11/18 23:24 138/87 11/11/18 22:28 18 11/11/18 21:28 18 11/11/18 19:30 98.7 F 66 18 136/81 11/11/18 17:23 98.3 F 74 16 153/96 98 11/11/18 16:27 20 11/11/18 16:25 20 Intake and Output 11/11/18 11/12/18 11/12/18 23:59 07:59 15:59 Intake Total 500 500 480 Balance 500 500 480 Intake: Oral 200 200 480 Intake, Free Water 300 300 Other: Total, Intake Amount 200 200 480 - Exam Cardiovascular: Present: Regular rate, Normal S1, Normal S2, No murmurs Lungs: Present: Clear to auscultation Abdomen: Present: normal appearance, normal bowel sounds. Absent: soft, distention, tenderness, guarding, rigidity Uterus: Present: normal, firm, fundal height below umbilicus. Absent: bogginess, tenderness Extremities: Present: normal. Absent: tenderness, edema Comments: No CVAT bilaterally. - Labs Labs: Abnormal lab results 11/11/18 11/11/18 11/11/18 Range/Units 18:39 18:39 23:50 Hgb 8.5 L (10.1-14.3) gm/dl Hct 27.3 L (30.3-42.9) % MCV 66 L (79-97) fl MCH 21 L (28-32) pg RDW 20.3 H (13.2-15.2) % BUN 5 L (7-17) mg/dL Creatinine 0.5 L (0.7-1.2) mg/dL Lactate Dehydrogenase 339 H (91-180) units/L Total Protein 6.2 L (6.3-8.2) g/dL Albumin 2.9 L (3.9-5) g/dL Urine WBC (Auto) 12.0 H (0.0-6.0) /HPF U Epithel Cells (Auto) 18.0 H (0-13.0) /HPF
[2018-11-12] MEDS: PERCOCET 5/325 PO PRN ×2 (16:09→22:02)
[2018-11-12] MEDS: ROCEPHIN IM SCH (16:13)
[2018-11-12] MEDS: PHENERGAN PO PRN ×2 (16:26→21:38)
[2018-11-13] MEDS: IBUPROFEN PO SCH ×2 (02:03→10:02)
[2018-11-13] MEDS: PERCOCET 5/325 PO PRN ×2 (04:44→10:06)
--- NOTE | 2018-11-13 07:20 | Progress Note ---
Assessment and Plan A: day 3 S/P . Anemia secondary to and blood loss. UTI. Hypertension, controlled with Labetalol. P: Discharge patient home today. discharge instructions and warning signs discussed in detail with patient. Advised patient to continue taking PNV and iron supplements at home. Advised patient to avoid intercourse, lifting and heavy housework, and driving. Advised patient to take the following medications at home and Rx Called to [facility] pharmacy in [place]: Macrobid 100 mg, #14, 1 po BID, 0 RF and Labetalol 200 mg, #60, 1 po BID, 0 RF. Advised patient to follow up at [facility] in 2 days for BP check. Patient voiced understanding of instructions. Subjective - Subjective Date of service: 11/13/18 Principal diagnosis: day 3 S/P spontaneous vaginal delivery Interval history: day 3 S/P spontaneous vaginal delivery. Doing well. Voiding without difficulty, ambulating well, tolerating a regular diet without nausea or vomiting. Reports small amount of lochia. Patient denies headache, visual disturbance, chest pain, shortness of breath, dizziness, nausea or vomiting, fever or chills, malaise, leg pain, or abdominal pain. Patient denies back pain, flank pain, pelvic cramping, or any other problems. Patient reports: appetite normal, voiding normally, pain well controlled, flatus, ambulating normally, no dizzy ambulation, no nauseated [place]: doing well Objective - Vital Signs Latest vital signs: Vital Signs Temp Pulse Resp BP BP 11/13/18 00:00 98.7 F 60 18 112/74 11/12/18 21:49 81 130/87 11/12/18 21:47 98 F 81 18 130/87 11/12/18 16:09 18 11/12/18 14:11 20 11/12/18 12:15 98.7 F 79 18 159/99 11/12/18 10:22 20 11/12/18 08:13 98.3 F 87 18 145/93 Intake and Output 11/12/18 11/12/18 11/13/18 15:59 23:59 07:59 Intake Total 480 300 Balance 480 300 Intake: Oral 480 Intake, Free Water 300 Other: Total, Intake Amount 480 - Exam Cardiovascular: Present: Regular rate, Normal S1, Normal S2, No murmurs Lungs: Present: Clear to auscultation Abdomen: Present: normal appearance, soft. Absent: distention, tenderness, guarding, rigidity Uterus: Present: normal, firm, fundal height below umbilicus. Absent: bogginess, tenderness Extremities: Present: normal. Absent: tenderness, edema
--- NOTE | 2018-11-13 07:26 | Discharge Summary ---
Providers - Providers Date of Admission: 11/09/18 12:09 Date of discharge: 11/13/18 Attending physician: TRENTON HER MD None Primary care physician: TRENTON HER MD Hospitalization Reason for admission: induction of labor Delivery: Episiotomy: none Laceration: none Other procedures: none complications: none Discharge diagnosis: delivery [place] baby: male Pertinent studies: Labs Hospital course: Stable hospital course. Condition at discharge: Good Disposition: DC-01 TO HOME OR SELFCARE - Discharge Diagnoses (1) Anemia due to blood loss Status: Acute Plan - Provider Discharge Summary Activity: routine, no sex for 6 weeks, no heavy lifting 4 weeks, no strenuous exercise Diet: routine Instructions: routine Additional instructions: Continue taking your vitamins and iron at home. The following Rx were called to [facility] pharmacy: Macrobid 100 mg, #14, 1 po BID; Labetalol 200 mg, #60, 1 po BID, 0 RF. Call your doctor immediately for: * Fever > 100.5 * Heavy vaginal bleeding ( >1 pad per hour) * Severe persistent headache * Shortness of breath * Reddened, hot, painful area to leg or breast - Follow up plan Follow up: TRENTON HER MD [Primary Care Provider] - 11/15/18
[2018-11-13] MEDS ORDERED: XYLOCAINE 1% MPF 5 mL INFILTRATI ONE (09:35)
[2018-11-13] MEDS: NORMODYNE PO SCH (10:02)
[2018-11-13] MEDS: ROCEPHIN IM SCH (10:03)
[2018-11-13] MEDS: FEOSOL PO SCH (10:03)
[2018-11-13 11:51] VITALS: BP 132/89
== END 2018-11-13 11:20 | disposition home or self-care (01) | DRG 774 ==
LOC: LD 12:09 → OB 11-10 09:50
PROVIDERS: ADMIT Obstetrics & Gynecology; ATTEND Obstetrics & Gynecology
PROC: 10E0XZZ Delivery of Products of Conception, External Approach (ICD-10-PCS; principal; 2018-11-10)
PROC: 3E033VJ Introduction of Other Hormone into Peripheral Vein, Percutaneous Approach (ICD-10-PCS; 2018-11-10)
PROC: 3E0R3BZ Introduction of Anesthetic Agent into Spinal Canal, Percutaneous Approach (ICD-10-PCS; 2018-11-10)
PROC: 00HU33Z Insertion of Infusion Device into Spinal Canal, Percutaneous Approach (ICD-10-PCS; 2018-11-10)
PROC: 10H07YZ Insertion of Other Device into Products of Conception, Via Natural or Artificial Opening (ICD-10-PCS; 2018-11-10)
DX: O60.14X0 Preterm labor third trimester with preterm delivery third trimester, not applicable or unspecified (principal); O75.3 Other infection during labor; O99.02 Anemia complicating childbirth; D50.0 Iron deficiency anemia secondary to blood loss (chronic); O10.92 Unspecified pre-existing hypertension complicating childbirth; O41.03X0 Oligohydramnios, third trimester, not applicable or unspecified; Z3A.36 36 weeks gestation of pregnancy; Z37.0 Single live birth; Z91.040 Latex allergy status; Z79.899 Other long term (current) drug therapy
CPT/HCPCS: 36415; 59025; 76815; 76819; 80053; 81001; 82565; 83615; 84450; 84460; 84550; 85014; 85018; 85025; 85027; 86592; 86850; 86900; 86901; 87086; 96360; G0378; J0290; J0595; J0696; J0702; J2405; J2590; J3010; J3105; J7120; Q0169